=== PATIENT | female | born 1950 | race Two or more races ===

== ENCOUNTER → 2019-02-14 | Outpatient (CLI) | payer OTHER ==
[~2019-02-14] MED LIST: NABUMETONE500 MG PO; PERCOCET 5/3251 TAB PO
== END | disposition home or self-care (01) ==
LOC: NUCLEAR 13:05
DX: M85.80 Other specified disorders of bone density and structure, unspecified site (principal); M81.0 Age-related osteoporosis without current pathological fracture

== ENCOUNTER 2019-04-07 09:24 | Outpatient (CLI) | payer OTHER | END 2019-04-07 09:29 | disposition home or self-care (01) | LOC: MAMO-SONO 09:24 | DX: Z12.31 Encounter for screening mammogram for malignant neoplasm of breast (principal); Z87.898 Personal history of other specified conditions ==

== ENCOUNTER → 2019-10-09 | Outpatient (CLI) | payer OTHER | END | disposition home or self-care (01) | LOC: RAD 10:26 | DX: H25.11 Age-related nuclear cataract, right eye (principal); Z01.810 Encounter for preprocedural cardiovascular examination ==

== ENCOUNTER 2021-02-15 13:08 | Outpatient (CLI) | payer OTHER | END 2021-02-15 13:11 | disposition home or self-care (01) | LOC: NUCLEAR 13:08 | PROVIDERS: ATTEND Internal Medicine Rheumatology | DX: M81.0 Age-related osteoporosis without current pathological fracture (principal) ==

== ENCOUNTER 2021-02-17 11:37 | Emergency (ER) | payer OTHER ==
[~2021-02-17] VITALS: Ht 165.1 cm; Wt 76.2 kg
[2021-02-17] MEDS ORDERED: LOTREL 10-20 M1 EACH (12:14)
[2021-02-17] MEDS ORDERED: LIPITOR40 M1 PO (12:14)
[2021-02-17] MEDS ORDERED: DICLOFENAC POTA50 MG PO (16:51)
== END 2021-02-17 18:07 | disposition home or self-care (01) ==
LOC: ER 11:37
DX: S52.121A Displaced fracture of head of right radius, initial encounter for closed fracture (principal); S80.02XA Contusion of left knee, initial encounter; S60.212A Contusion of left wrist, initial encounter; S60.211A Contusion of right wrist, initial encounter; W18.09XA Striking against other object with subsequent fall, initial encounter; Y93.89 Activity, other specified; Y92.89 Other specified places as the place of occurrence of the external cause; Y99.8 Other external cause status

== ENCOUNTER 2021-02-23 10:58 | Outpatient (CLI) | payer OTHER ==
[~2021-02-23 10:58] MED LIST changes: +DICLOFENAC POTA50 MG PO; +LIPITOR40 M1 PO; +LOTREL 10-20 M1 EACH
== END 2021-02-23 11:04 | disposition home or self-care (01) ==
LOC: RAD 10:58
PROVIDERS: ATTEND Orthopaedic Surgery
DX: M25.521 Pain in right elbow (principal); S52.121A Displaced fracture of head of right radius, initial encounter for closed fracture

== ENCOUNTER 2021-02-23 15:15 | Outpatient (CLI) | payer OTHER | END 2021-02-23 15:19 | disposition home or self-care (01) | LOC: LAB 15:15 | PROVIDERS: ATTEND Orthopaedic Surgery | DX: E83.42 Hypomagnesemia (principal); E56.1 Deficiency of vitamin K; M85.9 Disorder of bone density and structure, unspecified ==

== ENCOUNTER 2021-06-24 15:54 | Outpatient (CLI) | payer OTHER | END 2021-06-24 16:00 | disposition home or self-care (01) | LOC: RAD 15:54 | PROVIDERS: ATTEND Specialist | DX: I10 Essential (primary) hypertension (principal) ==

== ENCOUNTER 2022-02-06 11:55 | Emergency (ER) | payer OTHER ==
[~2022-02-06] VITALS: Ht 165.1 cm; Wt 75.7 kg
[2022-02-06] MEDS ORDERED: ZITHROMAX200 MG PO (14:37)
== END 2022-02-06 14:44 | disposition home or self-care (01) ==
LOC: ER 11:55
DX: B34.8 Other viral infections of unspecified site (principal); I10 Essential (primary) hypertension

== ENCOUNTER 2022-12-21 12:53 | Outpatient (CLI) | payer OTHER ==
[~2022-12-21 12:53] MED LIST changes: +ZITHROMAX200 MG PO
== END 2022-12-21 13:04 | disposition home or self-care (01) ==
LOC: MAMO-SONO 12:53
PROVIDERS: ATTEND Obstetrics & Gynecology
DX: N64.0 Fissure and fistula of nipple (principal); N84.0 Polyp of corpus uteri

== ENCOUNTER 2023-02-16 13:04 | Outpatient (CLI) | payer OTHER | END 2023-02-16 13:07 | disposition home or self-care (01) | LOC: NUCLEAR 13:04 | PROVIDERS: ATTEND Internal Medicine Rheumatology | DX: M81.0 Age-related osteoporosis without current pathological fracture (principal) ==

== ENCOUNTER 2023-05-24 10:09 | Outpatient (CLI) | payer OTHER | END 2023-05-24 10:14 | disposition home or self-care (01) | LOC: RAD 10:09 | PROVIDERS: ATTEND Ophthalmology | DX: H35.3 Degeneration of macula and posterior pole (principal) ==

== ENCOUNTER 2023-12-31 11:19 | Outpatient (CLI) | payer OTHER | END 2023-12-31 11:23 | disposition home or self-care (01) | LOC: RAD 11:19 | PROVIDERS: ATTEND Physical Medicine & Rehabilitation | DX: M70.20 Olecranon bursitis, unspecified elbow (principal) ==

== ENCOUNTER 2024-05-28 14:59 | Outpatient (CLI) | payer OTHER | END 2024-05-28 15:15 | disposition home or self-care (01) | LOC: RAD 14:59 | PROVIDERS: ATTEND Physical Medicine & Rehabilitation | DX: M54.2 Cervicalgia (principal) ==

== ENCOUNTER 2024-05-28 15:36 | Outpatient (CLI) | payer OTHER | END 2024-05-28 15:44 | disposition home or self-care (01) | LOC: EKG 15:36 | PROVIDERS: ATTEND Internal Medicine | DX: I10 Essential (primary) hypertension (principal) ==

== ENCOUNTER 2025-04-06 12:08 | Outpatient (CLI) | payer OTHER | END 2025-04-06 12:11 | disposition home or self-care (01) | LOC: RAD 12:08 | PROVIDERS: ATTEND Physical Medicine & Rehabilitation | DX: M17.11 Unilateral primary osteoarthritis, right knee (principal); M17.12 Unilateral primary osteoarthritis, left knee ==

== ENCOUNTER 2025-07-30 06:53 | Inpatient (IN) | payer OTHER ==
[~2025-07-30] VITALS: Ht 165.1 cm; Wt 69.9 kg
--- NOTE | 2025-07-30 07:32 | NUR ---
PTE REFIEFE DIARREAS X 7 Y VOMITOS X 2 DESPUES DE LA BENTYL QUE LIAM SOCORRO . SE LE LIAM S/V Y SE UBICA EN PASILLO.
[2025-07-30] MEDS ORDERED: FAMOtidine 10 MG/ML (4ML VIAL) IV ONE (07:45)
[2025-07-30] MEDS ORDERED: ONDANSETRON HCL 2 MG/ML VIAL IV ONE (07:45)
[2025-07-30] MEDS ORDERED: 0.9 % SODIUM CHLORIDE 1,000 ML IV ONE (08:00)
[2025-07-30] MEDS ORDERED: KETOROLAC TROMETHAMINE 30 MG VIAL IV ONE (08:00)
--- NOTE | 2025-07-30 08:26 | NUR ---
SE ORIENTA PTE SOBRE TX A SEGUIR, LA MISMA REFIERE ENTENDER. SE LIAM MUESTRA DE LABS, SE CANALIZA Y SE ADMINISTRA MED CINDY ORDEN MEDICA
[2025-07-30 08:35] LABS: BASO % 0.5 % (0.1-1.2); EOS # 0.08 (0.04-0.54); EOS % 1.2 % (0.7-7.0); LYMPH # 0.93 (1.18-3.74); LYMPH % 14.2 % (19.3-53.1); MEAN PLATELET VOLUME 9.30 fl (9.4-12.4); MONO # 0.47 (0.24-0.82); MONO % 7.2 % (4.7-12.5); NEUT # 5.05 (1.56-6.13); NEUT % 76.7 % (34.0-71.1); RED CELL DISTRIBUTION WIDTH 12.3 % (11.6-14.4)
[2025-07-30 08:46] LABS: INR 0.96
[2025-07-30 08:50] LABS: ALT/SGPT 48.0 U/L (12-78); AST/SGOT 31.0 U/L (15-37); BILIRUBIN TOTAL 1.34 mg/dL (0.3-1.2); BUN CREA RATIO 13.0 (7.0-25.0); CREATININE SERUM 0.78 mg/dL (0.55-1.02); GFR 72.0; GLOBULINA 3.8 G/DL (2.4-3.5); GLUCOSE FASTING 100.0 mg/dL (65-100); OSMOLALITY SERUM 282.0 MOSM/KG (275-295)
[2025-07-30 10:46] LABS: URINE APPEARANCE Clear; URINE BILIRRUBIN Negative (NEGATIVE); URINE BLOOD Negative; URINE COLOR Dark Yellow; URINE GLUCOSE Negative (NEGATIVE); URINE KETONE Trace (NEGATIVE); URINE LEUKOCYTE Small; URINE NITRATE Negative; URINE PROTEIN Trace (NEGATIVE); URINE UROBILINOGEN 0.2 E.U./dl
[2025-07-30 10:51] LABS: URINE BACTERIA 10.7 uL (0.0-1933); URINE EPITHELIAL CELLS 7.0 uL (0.0-38.8); URINE RBC 3.8 uL (0.0-20.8); URINE WBC 4.2 uL (0.0-23.2)
[2025-07-30 11:31] LABS: URINE CAST 0.58 uL (0.0-1.40)
[2025-07-30] MEDS ORDERED: PIPERACILLIN/TAZOBACTAM SODIUM 3.375 GM VIAL IV SCH (12:00)
[2025-07-30] MEDS ORDERED: ACETAMINOPHEN 325 MG TABLET PO PRN (14:30)
[2025-07-30] MEDS ORDERED: ONDANSETRON HCL 4 MG in 0.9 % SODIUM CHLORIDE 50 ML IV PRN (14:30)
[2025-07-30] MEDS ORDERED: 0.9 % SODIUM CHLORIDE 1,000 ML IV SCH (14:30)
[2025-07-30 14:54] VITALS: BP 149/83
[2025-07-30] MEDS ORDERED: ENALAPRILAT DIHYDRATE 1.25 MG/ML VIAL IV PRN (15:45)
[2025-07-30] MEDS ORDERED: MORPHINE SULFATE 2 MG/ML SYRINGE IV PRN (15:45)
[2025-07-31 03:33] VITALS: BP 109/64; O2SAT 98
[2025-07-31 06:19] LABS: BASO % 0.7 % (0.1-1.2); EOS # 0.17 (0.04-0.54); EOS % 4.1 % (0.7-7.0); LYMPH # 1.03 (1.18-3.74); LYMPH % 24.9 % (19.3-53.1); MEAN PLATELET VOLUME 9.80 fl (9.4-12.4); MONO # 0.51 (0.24-0.82); NEUT # 2.38 (1.56-6.13); NEUT % 57.8 % (34.0-71.1); RED CELL DISTRIBUTION WIDTH 12.2 % (11.6-14.4)
[2025-07-31 06:37] LABS: MONO % 12.3 % (4.7-12.5)
[2025-07-31 06:49] LABS: ERYTHROCYTE SEDIMENTATION RATE 59 mm/hr (0-30)
[2025-07-31] MEDS ORDERED: FAMOTIDINE/PF 20 MG/2 ML VIAL IV SCH (09:00)
[2025-07-31] MEDS ORDERED: PATIENTS OWN MEDICATION (MEDICAMENTO EN PISO) PO SCH (09:00)
[2025-07-31] MEDS ORDERED: ATORVASTATIN CALCIUM 10 MG TABLET PO SCH (09:00)
[2025-07-31 09:21] VITALS: BP 111/71; O2SAT 98
[2025-07-31] MEDS ORDERED: ACETAMINOPHEN 500 MG GEL..CAP PO PRN (13:30)
[2025-07-31 13:48] LABS: BUN CREA RATIO 13.0 (7.0-25.0); CREATININE SERUM 0.52 mg/dL (0.55-1.02); GFR 114.96; GLUCOSE FASTING 73.0 mg/dL (65-100); OSMOLALITY SERUM 283.0 MOSM/KG (275-295)
[2025-07-31 18:27] VITALS: BP 151/77; O2SAT 97
[2025-08-01 03:58] VITALS: BP 127/72; O2SAT 95
[2025-08-01 07:50] LABS: BASO % 0.8 % (0.1-1.2); EOS # 0.13 (0.04-0.54); EOS % 2.6 % (0.7-7.0); LYMPH # 0.86 (1.18-3.74); LYMPH % 17.2 % (19.3-53.1); MEAN PLATELET VOLUME 9.70 fl (9.4-12.4); MONO # 0.47 (0.24-0.82); MONO % 9.4 % (4.7-12.5); NEUT # 3.50 (1.56-6.13); NEUT % 69.8 % (34.0-71.1); RED CELL DISTRIBUTION WIDTH 11.5 % (11.6-14.4)
[2025-08-01 07:54] LABS: ALT/SGPT 35.0 U/L (12-78); AST/SGOT 21.0 U/L (15-37); BILIRUBIN TOTAL 1.32 mg/dL (0.3-1.2); BUN CREA RATIO 14.0 (7.0-25.0); CREATININE SERUM 0.66 mg/dL (0.55-1.02); GFR 87.31; GLOBULINA 2.8 G/DL (2.4-3.5); GLUCOSE FASTING 57.0 mg/dL (65-100); OSMOLALITY SERUM 278.0 MOSM/KG (275-295)
[2025-08-01 10:06] VITALS: BP 124/78; O2SAT 97
[2025-08-01] MEDS ORDERED: AA 4.25%/CAL/LYTES/DEXT 5% 1,000 ML PERIFERAL SCH (17:00)
[2025-08-01] MEDS ORDERED: MAGNESIUM SULFATE IN WATER 50 ML IV NR (17:00)
[2025-08-01 18:12] VITALS: BP 146/80
[2025-08-02 02:27] VITALS: BP 115/68; O2SAT 95
[2025-08-02 05:25] LABS: CHOL HDL RATIO 5.2 (0-5.0); HDL 29.0 mg/dl (40-60); LDL 102.0 mg/dl (0-130); VLDL 19.0 (0-39)
[2025-08-02 10:22] VITALS: BP 132/76; O2SAT 98
[2025-08-02] MEDS ORDERED: DIATRIZOATE MEGLUMINE, SODIUM 30 ML BOTTLE PO STA (10:24)
[2025-08-02 18:19] VITALS: BP 157/85
[2025-08-03 02:32] VITALS: BP 111/71
[2025-08-03 06:11] LABS: BASO % 0.4 % (0.1-1.2); EOS # 0.18 (0.04-0.54); EOS % 3.5 % (0.7-7.0); LYMPH # 1.10 (1.18-3.74); LYMPH % 21.3 % (19.3-53.1); MEAN PLATELET VOLUME 9.20 fl (9.4-12.4); MONO # 0.53 (0.24-0.82); MONO % 10.3 % (4.7-12.5); NEUT # 3.31 (1.56-6.13); NEUT % 64.1 % (34.0-71.1); RED CELL DISTRIBUTION WIDTH 12.1 % (11.6-14.4)
[2025-08-03 06:31] LABS: INR 1.12
[2025-08-03 06:58] LABS: ALT/SGPT 31.0 U/L (12-78); AST/SGOT 19.0 U/L (15-37); BILIRUBIN TOTAL 1.33 mg/dL (0.3-1.2); BILIRUBIN,CONJUGATED 0.26 mg/dL (0.0-0.2); BUN CREA RATIO 14.0 (7.0-25.0); CHOL HDL RATIO 5.2 (0-5.0); CREATININE SERUM 0.56 mg/dL (0.55-1.02); GFR 105.53; GLOBULINA 2.7 G/DL (2.4-3.5); GLUCOSE FASTING 106.0 mg/dL (65-100); HDL 28.0 mg/dl (40-60); LDL 100.0 mg/dl (0-130); OSMOLALITY SERUM 287.0 MOSM/KG (275-295); VLDL 17.0 (0-39)
[2025-08-03 07:33] LABS: UREA CLEARANCE 39.0 ML/MIN
[2025-08-03 18:08] VITALS: BP 116/79
[2025-08-04 02:29] VITALS: BP 123/71; O2SAT 96
[2025-08-04 09:16] VITALS: BP 130/80; O2SAT 96
[2025-08-04 17:49] VITALS: BP 115/74
[2025-08-05 02:46] VITALS: BP 143/78; O2SAT 97
[2025-08-05 09:02] VITALS: BP 124/88; O2SAT 97
[2025-08-05] MEDS ORDERED: POLYETHYLENE GLYCOL 3350 17 GM BLIST.PACK PO SCH (17:00)
[2025-08-05 17:53] VITALS: BP 140/80
[2025-08-06 01:52] VITALS: BP 129/72; O2SAT 95
[2025-08-06] MEDS ORDERED: AMOX-CLAV 875-1 EACH PO (08:11)
[2025-08-06] MEDS ORDERED: INTESTINEX680 M1 PO (08:11)
[2025-08-06] MEDS ORDERED: PEPCID AC20 MG PO (08:12)
[2025-08-06 08:50] VITALS: BP 122/78; O2SAT 97
== END 2025-08-06 09:59 | disposition home or self-care (01) | DRG 392 ==
LOC: ER 06:53 → MEDJ 16:45 → SEC-K 16:45 → MEDJ 18:46
PROVIDERS: General Practice; Internal Medicine; ADMIT Internal Medicine; ATTEND Internal Medicine
PROC: BW21ZZZ Computerized Tomography (CT Scan) of Abdomen and Pelvis (ICD-10-PCS; principal; 2025-07-30)
PROC: BW40ZZZ Ultrasonography of Abdomen (ICD-10-PCS; 2025-07-30)
PROC: 05HY33Z Insertion of Infusion Device into Upper Vein, Percutaneous Approach (ICD-10-PCS; 2025-07-31)
PROC: 3E0336Z Introduction of Nutritional Substance into Peripheral Vein, Percutaneous Approach (ICD-10-PCS; 2025-08-01)
PROC: BW21YZZ Computerized Tomography (CT Scan) of Abdomen and Pelvis using Other Contrast (ICD-10-PCS; 2025-08-01)
DX: K57.20 Diverticulitis of large intestine with perforation and abscess without bleeding (principal); E83.42 Hypomagnesemia; I10 Essential (primary) hypertension; E78.5 Hyperlipidemia, unspecified

== ENCOUNTER 2025-09-07 07:59 | Outpatient (CLI) | payer OTHER ==
[~2025-09-07 07:59] MED LIST changes: +AMOX-CLAV 875-1 EACH PO; +INTESTINEX680 M1 PO; +PEPCID AC20 MG PO
== END 2025-09-07 08:03 | disposition home or self-care (01) ==
LOC: TOM 07:59
PROVIDERS: ATTEND Internal Medicine
DX: K57.92 Diverticulitis of intestine, part unspecified, without perforation or abscess without bleeding (principal)
CPT/HCPCS: 74177; Q9965

== ENCOUNTER 2025-09-21 11:23 | Emergency (ER) | payer OTHER ==
[~2025-09-21] VITALS: Ht 167.6 cm; Wt 67.6 kg
[2025-09-21 11:31] VITALS: BP 117/82; O2SAT 98
[2025-09-21] MEDS ORDERED: DIPHENHYDRAMINE HCL 50 MG/ML VIAL 1ML IV ONE (11:45)
[2025-09-21] MEDS ORDERED: METHYLPREDNISOLONE SOD SUCC 125 MG VIAL IV ONE (11:45)
[2025-09-21] MEDS ORDERED: DIPHENHYDRAMINE HCL 50 MG/ML VIAL 1ML ONE (11:57)
[2025-09-21] MEDS ORDERED: METHYLPREDNISOLONE SOD SUCC 125 MG VIAL ONE (11:57)
[2025-09-21] MEDS ORDERED: FAMOTIDINE/PF 20 MG/2 ML VIAL ONE (11:57)
[2025-09-21] MEDS ORDERED: ONDANSETRON HCL 2 MG/ML VIAL ONE (11:58)
[2025-09-21] MEDS ORDERED: ONDANSETRON HCL 2 MG/ML VIAL IV ONE (12:00)
[2025-09-21] MEDS ORDERED: FAMOTIDINE/PF 20 MG/2 ML VIAL IV ONE (12:00)
[2025-09-21 14:00] LABS: BASO % 0.2 % (0.1-1.2); EOS # 0.01 (0.04-0.54); EOS % 0.1 % (0.7-7.0); LYMPH # 0.37 (1.18-3.74); LYMPH % 4.3 % (19.3-53.1); MEAN PLATELET VOLUME 9.30 fl (9.4-12.4); MONO # 0.20 (0.24-0.82); MONO % 2.3 % (4.7-12.5); NEUT # 8.04 (1.56-6.13); NEUT % 92.5 % (34.0-71.1); RED CELL DISTRIBUTION WIDTH 12.7 % (11.6-14.4)
[2025-09-21 14:19] LABS: ALT/SGPT 23.0 U/L (12-78); AST/SGOT 18.0 U/L (15-37); BILIRUBIN TOTAL 1.5 mg/dL (0.3-1.2); BUN CREA RATIO 14.0 (7.0-25.0); CREATININE SERUM 0.87 mg/dL (0.55-1.02); GFR 63.47; GLOBULINA 3.1 G/DL (2.4-3.5); GLUCOSE FASTING 118.0 mg/dL (65-100); OSMOLALITY SERUM 288.0 MOSM/KG (275-295)
[2025-09-21] MEDS ORDERED: MEDROLPACK PO (14:36)
[2025-09-21] MEDS ORDERED: BENADRYL ALLERG25 MG PO (14:36)
== END 2025-09-21 14:57 | disposition home or self-care (01) ==
LOC: ER 11:23
PROVIDERS: General Practice
DX: T78.40XA Allergy, unspecified, initial encounter (principal); I10 Essential (primary) hypertension
CPT/HCPCS: 36415; 96365; 99282; J2270; J2405; J3490